=== PATIENT | female | born 1980 | race Caucasian/White ===

== ENCOUNTER 2024-09-25 08:44 | Emergency (ER) | payer MEDICAID ==
[~2024-09-25] VITALS: Ht 172.7 cm; Wt 70.8 kg
[2024-09-25 08:50] VITALS: BP 149/95; TEMP 97.5
[2024-09-25] MEDS ORDERED: BENZ-13 PO (09:56)
[2024-09-25] MEDS ORDERED: IBUP-1955 PO (09:56)
[2024-09-25 11:32] VITALS: O2SAT 95
== END 2024-09-25 11:33 | disposition home or self-care (01) ==
LOC: ER 08:49
DX: J06.9 Acute upper respiratory infection, unspecified (principal); H92.03 Otalgia, bilateral; R53.81 Other malaise; R05.9 Cough, unspecified; Z20.822 Contact with and (suspected) exposure to COVID-19
CPT/HCPCS: 71045-TC